=== PATIENT | female | born 1995 | race Caucasian/White ===

== ENCOUNTER 2019-02-16 13:49 | Emergency (ER) | payer OTHER ==
[2019-02-16] MEDS ORDERED: AMOX TR/POT CLAV 875MG/125MG TABLETS (FP) PO ONE (14:13)
[2019-02-16 14:14] VITALS: BP 104/70; PULSE 68; TEMP 98.2; BMI 18.2
--- NOTE | 2019-02-16 14:21 | PDOC ---
History of Present Illness - General Chief Complaint: Bite Stated Complaint: dog bite Time Seen by Provider: 02/16/19 14:06 History Source: Patient Exam Limitations: No Limitations - History of Present Illness Initial Comments: 02/16/19 14:23 Duyen Marie is a 24y previously healthy F presenting with R hand dog bite. Pt works as animal hospital office supervisor handling animals. 1hr ago, pitbull bit pt's R hand on dorsal aspect and 4th finger while being restrained with subsequent swelling and bleeding. Wound was irrigated, cleaned w antiseptic, dressed. Last tetanus shot last year, dog had rabies shot. Denies fever, n/v, SOB. Past History - Past Medical History Allergies/Adverse Reactions: Allergies Allergy/AdvReac Type Severity Reaction Status Date / Time No Known Allergies Allergy Verified 02/16/19 13:50 Home Medications: Ambulatory Orders Amoxicillin/Potassium Clav [Augmentin 875-125 Tablet] 1 each PO BID 7 Days #14 tablet 02/16/19 COPD: No Other medical history: pt denies - Immunization History Immunization Up to Date: Yes - Suicide/Smoking/Psychosocial Hx Smoking History: Never smoked Hx Alcohol Use: Yes (occasionally) Drug/Substance Use Hx: Yes (marijuana) Review of Systems - Review of Systems Constitutional: No: Chills, Fever, Weakness HEENTM: No: Eye Pain, Nose Pain, Hearing Loss, Mouth Pain Respiratory: No: Cough, Shortness of Breath, Stridor Cardiac (ROS): No: Chest Pain, Edema, Lightheadedness, Palpitations, Syncope ABD/GI: No: Abdominal Distended, Constipated, Diarrhea, Nausea, Vomiting : No: Burning, Dysuria, Discharge, Frequency, Flank Pain, Hematuria Musculoskeletal: No: Back Pain, Joint Pain, Joint Swelling, Muscle Pain Integumentary: Yes: Lesions (bite aguero R hand), Other (mild edema R hand). No : Dryness, Erythema, Flushing, Rash Neurological: No: Headache, Seizure, Tingling, Tremors Psychiatric: No: Anxiety, Depression Endocrine: No: Excessive Sweating, Flushing, Intolerance to Cold, Intolerance to Heat Hematologic/Lymphatic: No: Anemia, Blood Clots, Easy Bleeding *Physical Exam - Vital Signs Last Vital Signs Temp Pulse Resp BP Pulse Ox 98.2 F 68 18 104/70 97 02/16/19 13:50 02/16/19 13:50 02/16/19 13:50 02/16/19 13:50 02/16/19 13:50 - Physical Exam General Appearance: Yes: Nourished, Appropriately Dressed. No: Apparent Distress HEENT: positive: EOMI, ERIC, Normal Voice, Hearing Grossly Normal. negative: Lesions, Aguero Respiratory/Chest: positive: Lungs Clear, Normal Breath Sounds. negative: Chest Tender, Crackles, Rales, Rhonchi, Stridor, Wheezing, Hyperresonant, Dullness Cardiovascular: positive: Regular Rhythm, Regular Rate, S1, S2. negative: Edema , Murmur Integumentary: positive: Other (R hand: 2 small puncture wounds on dorsal surface with minimal erythema, mild swelling, 1 puncture wound palmar aspect of 4th MTP. No bleeding, purulent discharge. Normal sensation to touch, full ROM, 5 /5 strength, 3+ radial pulses) Neurologic: positive: Fully Oriented, Alert, Normal Mood/Affect, Normal Response. negative: Confused, Disoriented Medical Decision Making - Medical Decision Making 02/16/19 14:08 R hand XR Give augmentin Duyen Marie is a 24y previously healthy F presenting with R hand dog bite. Last tetanus shot last year, dog had rabies shot. Neurovascular intact. R hand XR did not show fracture or foreign body. Not febrile ruling out sepsis. No abscess or crackling on exam suggesting deep tissue infection. Dressed wound , given augmentin. D/c home with 7d augmentin prescription. *DC/Admit/Observation/Transfer Diagnosis at time of Disposition: Dog bite Qualifiers: Encounter type: initial encounter Qualified Code(s): W54.0XXA - Bitten by dog, initial encounter - Discharge Dispostion Disposition: HOME Condition at time of disposition: Stable - Prescriptions Prescriptions: Amoxicillin/Potassium Clav [Augmentin 875-125 Tablet] 1 each PO BID 7 Days #14 tablet - Referrals Referrals: LAINE DUNN MD [Staff Physician] - - Patient Instructions Printed Discharge Instructions: DI for Animal Bites Additional Instructions: You were evaluated in the ED for a dog bite. Your exam and x-ray did not show anything concerning. Your wound was cleaned and dressed. Take the prescribed medication as indicated. Follow up with the referred medical clinic regarding your ED visit. Come back to the ED if you have worsening pain, numbness, or cannot move your hand. - Post Discharge Activity Forms/Work/School Notes: Back to Work
--- NOTE | 2019-02-16 14:21 | PDOC ---
Attending Attestation - Resident Resident Name: Ariel Gill - HPI HPI: 02/16/19 14:21 Pt presents to the ED complaining of dog bite to the R hand. Patient states that she was bitten by a pit bull during veterinary treatment. The dog has had all vaccinations, including rabies. Patient states that there was some slight bleeding immediately after the injury. Complaining of pain to the R hand. Last tetanus was one year ago. 02/16/19 14:23 - Physicial Exam PE: 02/16/19 14:24 Agree with resident exam. Patient is alert and oriented and in no acute distress. R hand: + multiple abrasions on dorsum of the hand, with no open wound or active bleeding. + small area of tender ecchymosis just proximal to the PIP joint. - Medical Decision Making 02/16/19 14:31 Pt presents to the ED with multiple abrasions to the hand after dog bite. tetatnus UTD. Dog has been vaccinated against rabies. Will treat with antbiotics to prevent infection. Given area of tenderness at 4th digit, will check xray to rule out fx.
[2019-02-16] MEDS ORDERED: AMOX TR/POT CLAV 875MG/125MG TABLETS (FP) ONE (14:28)
== END 2019-02-16 15:20 | disposition home or self-care (01) ==
LOC: FER 13:49
DX: S61.451A Open bite of right hand, initial encounter (principal); R05 Cough; W54.0XXA Bitten by dog, initial encounter; Y93.89 Activity, other specified; Y92.531 Health care provider office as the place of occurrence of the external cause; Y99.0 Civilian activity done for income or pay
CPT/HCPCS: 73130-TC-RT-FY; 81025; 99282-25